=== PATIENT | female | born 1945 | race Hispanic/Latino ===

== ENCOUNTER → 2023-12-10 | Outpatient (CLI) | payer OTHER, MEDICARE ==
[2023-12-10] MEDS: REGADENOSON 0.4 MG/5 ML PF SYG IVP ONE (13:29)
== END | disposition home or self-care (01) ==
LOC: SHCH 08:45
PROVIDERS: ATTEND Internal Medicine Cardiovascular Disease
DX: I25.42 Coronary artery dissection (principal); I20.9 Angina pectoris, unspecified
CPT/HCPCS: 78452; 96374; 93017; J2785; A9500 ×2